=== PATIENT | male | born 1960 | race Caucasian/White ===

== ENCOUNTER 2016-12-16 21:45 | Emergency (ER) | payer MEDICAID ==
[2016-12-16 22:05] VITALS: BP 143/72; PULSE 96; RESP 20; TEMP 98.2; O2SAT 93
[2016-12-16 22:23] LABS: % IMMATURE GRANULYOCYTES 0.3 % (0.0-1.1); ABSOLUTE IMMATURE GRANULOCYTES 0.02 10^3/uL (0.00-0.10); ADD DIFF? NO; ADD MORPH? NO; ADD SCAN? NO; ATYPICAL LYMPHOCYTE FLAG 0 (0-99); FRAGMENT RBC FLAG 0 (0-99); HEMATOCRIT 46.6 % (40.0-51.0); HEMOGLOBIN 16.5 g/dL (13.7-17.5); LEFT SHIFT FLG 0 (0-99); LIPEMIA HEMOLYSIS FLAG 90 (0-99); MEAN CELL HEMOGLOBIN 33.7 pg (27.9-34.1); MEAN CELL HEMOGLOBIN CONCENTR. 35.4 g/dL (32.4-36.7); MEAN CELL VOLUME 95.1 fL (81.5-99.8); MEAN PLATELET VOLUME 10.8 fL (8.7-11.7); PLATELET CLUMPS FLAG 10 (0-99); PLATELET COUNT 62 10^3/uL (150-400); RED CELL DISTRIBUTION WIDTH 16.1 % (11.5-15.2)
[2016-12-16] MEDS ORDERED: TDAP ADULT 0.5 ML INJ (BOOSTRIX) IM ONE (22:28)
--- NOTE | 2016-12-16 22:30 | CPEKG ---
Heart Rate: 84 RR Interval: 714 P-R Interval: 204 QRSD Interval: 104 QT Interval: 400 QTC Interval: 473 P [place]: 56 QRS [place]: -14 T Wave [place]: 72 EKG Severity - NORMAL ECG - EKG Impression: SINUS RHYTHM Electronically Signed By: Debo Fish 16-Dec-2016 22:45:52
[2016-12-16 22:31] LABS: ANION GAP 16 mEq/L (8-16); CALCIUM 8.9 mg/dL (8.5-10.4); CARBON DIOXIDE 27 mEq/l (22-31); CHLORIDE 108 mEq/L (97-110); CREATININE 0.6 mg/dL (0.7-1.3); GLOMERULAR FILTRATION RATE > 60; GLUCOSE 215 mg/dL (70-100); POTASSIUM 3.4 mEq/L (3.5-5.2); SODIUM 151 mEq/L (134-144)
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
[2016-12-16 23:01] LABS: ETHANOL SERUM 381 mg/dL (0-10)
[2016-12-17] MEDS ORDERED: CHLORDIAZEPOXIDE 25MG PREPK#6 BTL TAKEHOME ONE (00:32)
== END 2016-12-17 01:20 | disposition home or self-care (01) ==
LOC: EDUNIT#
PROC: 0HQ1XZZ Repair Face Skin, External Approach (ICD-10-PCS; principal; 2016-12-16)
DX: S01.81XA Laceration without foreign body of other part of head, initial encounter (principal); F10.121 Alcohol abuse with intoxication delirium; F17.200 Nicotine dependence, unspecified, uncomplicated; E11.9 Type 2 diabetes mellitus without complications; Z23 Encounter for immunization; W19.XXXA Unspecified fall, initial encounter
CPT/HCPCS: G0480

== ENCOUNTER 2016-12-27 13:22 | Emergency (ER) | payer MEDICAID ==
[2016-12-27 13:38] LABS: % IMMATURE GRANULYOCYTES 0.4 % (0.0-1.1); ABSOLUTE IMMATURE GRANULOCYTES 0.03 10^3/uL (0.00-0.10); ADD DIFF? NO; ADD MORPH? NO; ADD SCAN? NO; ATYPICAL LYMPHOCYTE FLAG 20 (0-99); FRAGMENT RBC FLAG 0 (0-99); HEMATOCRIT 39.9 % (40.0-51.0); HEMOGLOBIN 13.8 g/dL (13.7-17.5); LEFT SHIFT FLG 10 (0-99); LIPEMIA HEMOLYSIS FLAG 90 (0-99); MEAN CELL HEMOGLOBIN 34.9 pg (27.9-34.1); MEAN CELL HEMOGLOBIN CONCENTR. 34.6 g/dL (32.4-36.7); MEAN PLATELET VOLUME 10.8 fL (8.7-11.7); PLATELET CLUMPS FLAG 30 (0-99); PLATELET COUNT 52 10^3/uL (150-400); RED BLOOD CELL COUNT 3.95 10^6/uL (4.40-6.38); RED CELL DISTRIBUTION WIDTH 17.6 % (11.5-15.2)
[2016-12-27 13:39] VITALS: RESP 16; TEMP 98.1
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
[2016-12-27 13:50] LABS: ANION GAP 16 mEq/L (8-16); CALCIUM 9.5 mg/dL (8.5-10.4); CARBON DIOXIDE 25 mEq/l (22-31); CHLORIDE 102 mEq/L (97-110); CREATININE 0.7 mg/dL (0.7-1.3); GLOMERULAR FILTRATION RATE > 60; GLUCOSE 282 mg/dL (70-100); SODIUM 143 mEq/L (134-144)
[2016-12-27] MEDS ORDERED: POTASSIUM CL 20 MEQ PKT PO ONE (16:43)
[2016-12-27 17:02] VITALS: BP 131/63; PULSE 105; O2SAT 93
== END 2016-12-27 17:01 | disposition home or self-care (01) ==
LOC: EDUNIT#
DX: S09.90XA Unspecified injury of head, initial encounter (principal); S16.1XXA Strain of muscle, fascia and tendon at neck level, initial encounter; R19.7 Diarrhea, unspecified; R73.9 Hyperglycemia, unspecified; F17.200 Nicotine dependence, unspecified, uncomplicated; Y09 Assault by unspecified means

== ENCOUNTER 2016-12-30 08:43 | Inpatient (IN) | payer MEDICAID ==
[2016-12-30] MEDS ORDERED: NS 1,000 ML IV ONE (09:34)
--- NOTE | 2016-12-30 09:43 | EDPHY ---
H & P Time Seen by Provider: 12/30/16 09:24 HPI/ROS: CHIEF COMPLAINT: Diarrhea HISTORY OF PRESENT ILLNESS: Patient is a 56-year-old homeless male who presents to the emergency department complaining of diarrhea for the past 8 days. Patient states that he has been drinking [place] water and this is caused him to have watery diarrhea. He has seen in the emergency department on 2016 twenty eight of two thousand seventeen for the same symptoms. His diarrhea is nonbloody. He denies fever or chills. No nausea or vomiting. He has mild abdominal cramping that is diffuse. REVIEW OF SYSTEMS: My complete review of systems is negative except as mentioned in the HPI. Past Medical/Surgical History: Includes brain aneurysm, lumbar spine fracture, traumatic brain injury, skin grafting on left flank, hepatitis-C, end-stage liver disease, cirrhosis Social history: The patient smokes. He denies alcohol use today. Smoking Status: Current every day smoker Physical Exam: Vitals noted. Tachycardic 115. 171/75. 37.5. 91% GENERAL: No acute distress, alert. HEENT: Eyes normal to inspection, normal pharynx, no signs of dehydration. NECK: No thyromegaly, no lymphadenopathy, supple. RESPIRATORY: Clear to auscultation bilaterally, no rales, rhonchi or wheezing. CVS: Regular rate and rhythm, no rubs, murmurs, or gallops. ABDOMEN: Soft, nontender, nondistended, no organomegaly. BACK: Normal to inspection, no CVA tenderness. Skin graft on left lower back Groin: No rash SKIN: Normal color, no rash, warm, dry. No pallor. EXTREMITIES: No pedal edema, no calf tenderness, no Homans sign or cords, no joint swelling. NEURO/PSYCH: Alert and oriented x3, normal mood and affect, normal motor sensory exam. No obvious cranial nerve deficit. Constitutional: Initial Vital Signs Temperature (C) 37.5 C 12/30/16 08:58 Heart Rate 115 H 12/30/16 08:58 Respiratory Rate 16 12/30/16 08:58 Blood Pressure 171/75 H 12/30/16 08:58 O2 Sat (%) 91 L 12/30/16 08:58 O2 Delivery Mode Room Air Allergies/Adverse Reactions: No Known Allergies Allergy (Verified 12/16/16 21:59) Home Medications: Medication Instructions Recorded Ibuprofen [Motrin (*)] 200 mg PO Q4-6PRN PRN 04/22/16 Acetaminophen [Tylenol 325mg (*)] 650 mg PO Q4HRS PRN #0 tab 04/30/16 Amoxicillin 500 mg PO TID 10 Days 04/30/16 oxyCODONE IR [Oxycodone Ir (*)] 5 - 10 mg PO Q3H PRN #0 tab 04/30/16 Medical Decision Making ED Course/Re-evaluation: In the emergency department I discussed possible etiologies with the patient. I reviewed previous record. Patient had an IV placed. He is given L of normal saline for hydration. Laboratory studies including stool studies were ordered. I reviewed the patient's laboratory studies. His LFTs are elevated. His potassium is low at 3.0. The patient was given potassium chloride 40 mEq orally. Patient's stool was positive for C diff, salmonella and E coli (EPEC) I discussed the results with the patient. Answered all his questions. I paged the hospitalist service for admission. I discussed case with Dr. Lu. He recommended oral vancomycin. Vancomycin 250 mg orally was given. Differential Diagnosis: My differential includes but is not limited to diarrhea, infectious diarrhea, ova infection, parasite infection, obstruction, perforation, colitis, dehydration - Data Points Laboratory Results: Laboratory Results 12/30/16 08:45 12/30/16 08:45 12/30/16 12/30/16 12/30/16 09:30 08:45 08:45 WBC 4.94 10^3/uL 10^3/uL (3.80-9.50) RBC 3.75 10^6/uL L 10^6/uL (4.40-6.38) Hgb 13.3 g/dL L g/dL (13.7-17.5) Hct 37.8 % L % (40.0-51.0) MCV 100.8 fL H fL (81.5-99.8) MCH 35.5 pg H pg (27.9-34.1) MCHC 35.2 g/dL g/dL (32.4-36.7) RDW 17.3 % H % (11.5-15.2) Plt Count 37 10^3/uL L 10^3/uL (150-400) MPV 10.7 fL fL (8.7-11.7) Neut % (Auto) 73.7 % % (39.3-74.2) Lymph % (Auto) 13.6 % L % (15.0-45.0) [place] % (Auto) 11.1 % % (4.5-13.0) Eos % (Auto) 0.6 % % (0.6-7.6) Baso % (Auto) 0.6 % % (0.3-1.7) Nucleat RBC Rel Count 0.0 % % (0.0-0.2) Absolute Neuts (auto) 3.64 10^3/uL 10^3/uL (1.70-6.50) Absolute Lymphs (auto) 0.67 10^3/uL L 10^3/uL (1.00-3.00) Absolute Monos (auto) 0.55 10^3/uL 10^3/uL (0.30-0.80) Absolute Eos (auto) 0.03 10^3/uL 10^3/uL (0.03-0.40) Absolute Basos (auto) 0.03 10^3/uL 10^3/uL (0.02-0.10) Absolute Nucleated RBC 0.00 10^3/uL 10^3/uL (0-0.01) Immature Gran % 0.4 % % (0.0-1.1) Immature Gran # 0.02 10^3/uL 10^3/uL (0.00-0.10) Platelet Estimate DECREASED L (ADEQ) Sodium 133 mEq/L L mEq/L (134-144) Potassium 3.0 mEq/L L mEq/L (3.5-5.2) Chloride 98 mEq/L mEq/L (97-110) Carbon Dioxide 24 mEq/l mEq/l (22-31) Anion Gap 11 mEq/L mEq/L (8-16) BUN 6 mg/dL L mg/dL (7-23) Creatinine 0.5 mg/dL L mg/dL (0.7-1.3) Estimated GFR > 60 Glucose 291 mg/dL H mg/dL (70-100) Calcium 8.2 mg/dL L mg/dL (8.5-10.4) Total Bilirubin 4.3 mg/dL H mg/dL (0.1-1.4) Conjugated Bilirubin 1.9 mg/dL H mg/dL (0.0-0.5) Unconjugated Bilirubin 2.4 mg/dL H mg/dL (0.0-1.1) AST 103 IU/L H IU/L (17-59) ALT 65 IU/L IU/L (21-72) Alkaline Phosphatase 120 IU/L IU/L (38-126) Total Protein 6.5 g/dL g/dL (6.3-8.2) Albumin 3.3 g/dL L g/dL (3.5-5.0) Lipase 245.0 IU/L IU/L (23-300) Stool Concentration REJ Stool Ova & Parasites REJ Parasite Trichrome REJ Direct Microscop Exam REJ Microbiology Results: MICROBIOLOGY 12/30/16 09:30 Stool Gastrointestinal Tract Panel (PCR) - Final Clostridium Difficile Detected Salmonella Species E.coli Enteropathogenic(Epec) Medications Given: Discontinued Medications Sodium Chloride (Ns) 1,000 mls @ 0 mls/hr IV ONCE ONE PRN Reason: Wide Open Stop: 12/30/16 09:35 Last Admin: 12/30/16 09:51 Dose: 1,000 mls Potassium Chloride (Klor-Con) 40 meq PO ONCE ONE Stop: 12/30/16 11:18 Last Admin: 12/30/16 11:30 Dose: 40 meq Departure - Departure Disposition: Home, Routine, Self-Care Clinical Impression: Hypokalemia, Clostridium difficile diarrhea Diarrhea Qualifiers: Diarrhea type: unspecified type Qualified Code(s): R19.7 - Diarrhea, unspecified Hepatitis C Qualifiers: Viral hepatitis chronicity: chronic Condition: Good Referrals: NANCY TROTTER [Other] - As per Instructions
[2016-12-30 10:09] LABS: ALANINE AMINOTRANSFERASE 65 IU/L (21-72); ALBUMIN 3.3 g/dL (3.5-5.0); ALKALINE PHOSPHATASE 120 IU/L (38-126); ANION GAP 11 mEq/L (8-16); ASPARTATE AMINOTRANSFERASE 103 IU/L (17-59); BILIRUBIN,TOTAL 4.3 mg/dL (0.1-1.4); BILIRUBIN-CONJUGATED 1.9 mg/dL (0.0-0.5); BILIRUBIN-UNCONJUGATED 2.4 mg/dL (0.0-1.1); CALCIUM 8.2 mg/dL (8.5-10.4); CARBON DIOXIDE 24 mEq/l (22-31); CHLORIDE 98 mEq/L (97-110); CREATININE 0.5 mg/dL (0.7-1.3); GLOMERULAR FILTRATION RATE > 60; GLUCOSE 291 mg/dL (70-100); SODIUM 133 mEq/L (134-144); TOTAL PROTEIN 6.5 g/dL (6.3-8.2)
[2016-12-30 10:33] LABS: % IMMATURE GRANULYOCYTES 0.4 % (0.0-1.1); ABSOLUTE IMMATURE GRANULOCYTES 0.02 10^3/uL (0.00-0.10); ADD DIFF? NO; ADD MORPH? NO; ADD SCAN? NO; ATYPICAL LYMPHOCYTE FLAG 20 (0-99); FRAGMENT RBC FLAG 0 (0-99); HEMATOCRIT 37.8 % (40.0-51.0); HEMOGLOBIN 13.3 g/dL (13.7-17.5); LEFT SHIFT FLG 80 (0-99); LIPEMIA HEMOLYSIS FLAG 90 (0-99); MEAN CELL HEMOGLOBIN 35.5 pg (27.9-34.1); MEAN CELL HEMOGLOBIN CONCENTR. 35.2 g/dL (32.4-36.7); MEAN CELL VOLUME 100.8 fL (81.5-99.8); MEAN PLATELET VOLUME 10.7 fL (8.7-11.7); PLATELET CLUMPS FLAG 0 (0-99); RED BLOOD CELL COUNT 3.75 10^6/uL (4.40-6.38); RED CELL DISTRIBUTION WIDTH 17.3 % (11.5-15.2)
[2016-12-30 10:38] LABS: PLATELET COUNT 37 10^3/uL (150-400)
[2016-12-30 11:16] LABS: PLATELET ESTIMATE DECREASED (ADEQ)
[2016-12-30] MEDS ORDERED: POTASSIUM CL 20 MEQ TAB PO ONE (11:17)
[2016-12-30] MEDS ORDERED: VANCOMYCIN 125 MG/2.5 ML UDL PO ONE (12:18)
[2016-12-30 13:14] LABS: O/P DESCRIPTION MUCOID BROWN STOOL; O/P DIRECT NONE SEEN (NONE SEEN)
[2016-12-30] MEDS ORDERED: MAGNESIUM SULF 2 GM/WATER 50 ML IV ONE ×2 (13:34→16:00)
[2016-12-30] MEDS ORDERED: PROTOCOL MAGNESIUM 1 DOSE IV PRN (13:38)
[2016-12-30] MEDS ORDERED: MAGNESIUM SULF 2 GM/WATER 50 ML BAG IV ONE (13:38)
[2016-12-30] MEDS ORDERED: PROTOCOL POTASSIUM 1 DOSE MISC PRN (13:38)
[2016-12-30] MEDS ORDERED: POTASSIUM CL 20 MEQ/15 ML UDCUP PO ONE ×2 (13:45→16:00)
[2016-12-30] MEDS ORDERED: NS 1,000 ML IV SCH (13:45)
[2016-12-30] MEDS ORDERED: D50W 25 GM/50 ML SYR IVP PRN (13:46)
[2016-12-30] MEDS ORDERED: ONDANSETRON 4 MG/2 ML VIAL IVP PRN (13:47)
[2016-12-30] MEDS ORDERED: ONDANSETRON DISINTEGRATING 4 MG TAB PO PRN (13:47)
--- NOTE | 2016-12-30 13:57 | PDGENHP ---
History and Physical - Chief Complaint diarrhea - History of Present Illness This is a 56 yo homeless male who is being admitted for C-Diff Colitis. He has a hx of intermittent homelessness and recently became homeless again. He drank water from a stream several days ago and since has been having diarrhea and abd pain. He was tested for C-diff in the ED and this was positive and he has been started on oral Vancomycin. Due to the generalized malaise, oral intake has been poor. He has a number of complicated Medical problems to included ESLD, and thrombocytopenia. He has a hx of ETOH abuse but reports not drinking for about a week. He does not have acute WD sx's. In the ED he was noted to have a hypokalemia and it was replaced. I ordered a Mg and this is noted to be low. He denies Fevers, CP, SOB, palpitations, or other. He does have leg swelling which he reports in intermittent PMHx: ESLD, hyperbilirubinemia, cirrhosis, tobacco abuse, thrombocytopenia, alcoholism, TBI, SAH, Right elbow bursitis and cellulitis PSHx: TIPS, right elbow I&D Soc Hx: +tobacco, +ETOH, Neg ILL FmHx: father with CAD History Information - Allergies/Home Medication List Allergies/Adverse Reactions: No Known Allergies Allergy (Verified 12/16/16 21:59) Home Medications: Unobtainable 12/30/16 [Last Taken Unknown] I have personally reviewed and updated: family history, medical history, social history, surgical history - Past Medical History liver disease Additional medical history: hep C. SAH 01/15. thrombocytopenia - Surgical History Additional surgical history: TIPS - Family History Positive for: non-pertinent - Social History Smoking Status: Current every day smoker Review of Systems ROS: 10pt was reviewed & negative except for what was stated in HPI & below Physical Exam Temp Pulse Resp BP Pulse Ox 36.7 C 85 18 141/64 H 94 12/30/16 11:37 12/30/16 13:24 12/30/16 13:24 12/30/16 13:24 12/30/16 13:45 O2 (L/minute) 2 Constitutional: no apparent distress, chronically ill appearing, unkempt Eyes: PERRL, other (jaundiced) Ears, Nose, Mouth, Throat: hearing normal, no oral mucosal ulcers, dry mucous membranes Cardiovascular: regular rate and rhythym, edema (2+ bilateral), No JVD Respiratory: no respiratory distress, clear to auscultation Gastrointestinal: normoactive bowel sounds, distension, No guarding, No rebound Skin: warm, normal color Musculoskeletal: No generalized weakness Neurologic: AAOx3 Psychiatric: interacting appropriately, not anxious, not encephalopathic Lymph, Heme, Immunologic: no cervical LAD, no supraclavicular LAD Lab Data & Imaging Review 12/30/16 08:45 12/30/16 08:45 WBC 4.94 10^3/uL (3.80-9.50) 12/30/16 08:45 RBC 3.75 10^6/uL (4.40-6.38) L 12/30/16 08:45 Hgb 13.3 g/dL (13.7-17.5) L 12/30/16 08:45 Hct 37.8 % (40.0-51.0) L 12/30/16 08:45 MCV 100.8 fL (81.5-99.8) H 12/30/16 08:45 MCH 35.5 pg (27.9-34.1) H 12/30/16 08:45 MCHC 35.2 g/dL (32.4-36.7) 12/30/16 08:45 RDW 17.3 % (11.5-15.2) H 12/30/16 08:45 Plt Count 37 10^3/uL (150-400) L 12/30/16 08:45 MPV 10.7 fL (8.7-11.7) 12/30/16 08:45 Neut % (Auto) 73.7 % (39.3-74.2) 12/30/16 08:45 Lymph % (Auto) 13.6 % (15.0-45.0) L 12/30/16 08:45 [place] % (Auto) 11.1 % (4.5-13.0) 12/30/16 08:45 Eos % (Auto) 0.6 % (0.6-7.6) 12/30/16 08:45 Baso % (Auto) 0.6 % (0.3-1.7) 12/30/16 08:45 Nucleat RBC Rel Count 0.0 % (0.0-0.2) 12/30/16 08:45 Absolute Neuts (auto) 3.64 10^3/uL (1.70-6.50) 12/30/16 08:45 Absolute Lymphs (auto) 0.67 10^3/uL (1.00-3.00) L 12/30/16 08:45 Absolute Monos (auto) 0.55 10^3/uL (0.30-0.80) 12/30/16 08:45 Absolute Eos (auto) 0.03 10^3/uL (0.03-0.40) 12/30/16 08:45 Absolute Basos (auto) 0.03 10^3/uL (0.02-0.10) 12/30/16 08:45 Absolute Nucleated RBC 0.00 10^3/uL (0-0.01) 12/30/16 08:45 Immature Gran % 0.4 % (0.0-1.1) 12/30/16 08:45 Immature Gran # 0.02 10^3/uL (0.00-0.10) 12/30/16 08:45 Platelet Estimate DECREASED (ADEQ) L 12/30/16 08:45 Sodium 133 mEq/L (134-144) L 12/30/16 08:45 Potassium 3.0 mEq/L (3.5-5.2) L 12/30/16 08:45 Chloride 98 mEq/L (97-110) 12/30/16 08:45 Carbon Dioxide 24 mEq/l (22-31) 12/30/16 08:45 Anion Gap 11 mEq/L (8-16) 12/30/16 08:45 BUN 6 mg/dL (7-23) L 12/30/16 08:45 Creatinine 0.5 mg/dL (0.7-1.3) L 12/30/16 08:45 Estimated GFR > 60 12/30/16 08:45 Glucose 291 mg/dL (70-100) H 12/30/16 08:45 Calcium 8.2 mg/dL (8.5-10.4) L 12/30/16 08:45 Magnesium 1.1 mg/dL (1.6-2.3) L 12/30/16 08:45 Total Bilirubin 4.3 mg/dL (0.1-1.4) H 12/30/16 08:45 Conjugated Bilirubin 1.9 mg/dL (0.0-0.5) H 12/30/16 08:45 Unconjugated Bilirubin 2.4 mg/dL (0.0-1.1) H 12/30/16 08:45 AST 103 IU/L (17-59) H 12/30/16 08:45 ALT 65 IU/L (21-72) 12/30/16 08:45 Alkaline Phosphatase 120 IU/L (38-126) 12/30/16 08:45 Total Protein 6.5 g/dL (6.3-8.2) 12/30/16 08:45 Albumin 3.3 g/dL (3.5-5.0) L 12/30/16 08:45 Lipase 245.0 IU/L (23-300) 12/30/16 08:45 Stool Concentration REJ 12/30/16 09:30 Stool Ova & Parasites MUCOID BROWN STOOL 12/30/16 12:30 Parasite Trichrome REJ 12/30/16 09:30 Direct Microscop Exam NONE SEEN (NONE SEEN) 12/30/16 12:30 Assessment & Plan Assessment: # Acute Clostridium difficile colitis with diarrhea: -cont Vancomycin #Dehydration #Hypokalemia and Hypomagnesemia #ESLD, Cirrhosis, with hx of Hep C and Alcoholism #Hyperglycemia #Jaundice and Hyperbilirubinemia, due to ESLD #Thrombocytopenia due to ESLD #Pedal Edema, etiology is likely multifactoria. Plan: Admit Telemetry Replace K and Mg Gentle IVF. He has already received one liter in the E.D. will provide for additional liter at a gentle rate His Edema may be acute. Will check TTE. Liver disease/low protein state likely contributing Continue vancomycin Await stool cultures Monitor for WD. None currently Will need inpatient admission
[2016-12-30] MEDS: VANCOMYCIN 125 MG/2.5 ML UDL PO SCH ×2 (15:49→20:11)
--- NOTE | 2016-12-30 15:56 | WOCRNPDOC ---
WOCRN Advanced Assessment Note - Skin Integrity Problem, Advanced Assess Generalized Groin Dressing Type: Open to Air Exudate Amount: None Exudate Characteristic(s): None Integumentary Issue Intervention: Barrier Cream Applied (Touchless zinc spray) Magui Wound Tissue: Raw, Denuded Magui Wound Swelling: Mild Wound Bed Color: Red Skin Integrity Problem Comment: Raw, denuded skin noted in patient's groin, extending posteriorly to his perianal region r/t diarrhea x 8 days. Cleansed site w/ dimethicone barrier wipe, then applied Touchless Zinc oxide spray to groin and buttocks. Wound care will follow up on Thursday 01/04 to assess efficacy of treatment. logging equipment operator Anna present and assisting.
--- NOTE | 2016-12-30 17:18 | ECHO ---
[id number] + + [address] : : [place] [address] : : [phone] + + Adult Echocardiographic Report + -+ :Name: KENDAL PHILLIP Jason Date: 12/30/2016 02:24 PM : : Hospital Admission Number: [id number] : :: 1960 Gender: Male Height: 67 in : :Age: 56 yrs Race: WH Weight: 175 lb : :Reason For Study: Eval LV Fx : : BSA: 1.9 meters 2: :History: C-Diff : + -+ MMode/2D Measurements \T\ Calculations IVSd: 0.90 cm LVIDd: 4.7 cm FS: 38.3 % Ao root diam: 2.8 cm LVPWd: 1.0 cm LVIDs: 2.9 cm EDV(Teich): 102.5 ml ACS: 1.3 cm ESV(Teich): 32.3 ml EF(Teich): 68.5 % Normal Measurement Values: + + :LVIDd (3.5-5.7cm) IVSd (0.6-1.1cm) LVPWd (0.6-1.1cm) Aortic Root (2.0-3.7cm)Left Atrium (1.5-4.0cm): :LV Vol(d) (76-115ml) LV Vol(s) (29-48ml) Ejec Fraction (50-65%)PV Segun (0.6- 1.2m/s) TV Segun (0.4-1.0m/s) : :MV E Segun (0.8-1.0m/s)MV A Seugn (0.3-1.0m/s)LVOT Segun (0.7-1.2m/s) Asc Ao Segun ( 0.9-1.8m/s) : + + Doppler Measurements \T\ Calculations MV E max segun: 97.2 cm/sec PA V2 max: 153.4 cm/sec TR max segun: 272.8 cm/sec MV A max segun: 81.4 cm/sec PA max P.4 mmHg TR max P.8 mmHg MV E/A: 1.2 RAP systole: 5.0 mmHg RVSP(TR): 34.8 mmHg Left Ventricle The left ventricle is normal in size. There is normal left ventricular wall thickness. The left ventricular ejection fraction is normal. Ejection Fraction = 68%. The left ventricular wall motion is normal. Right Ventricle The right ventricle is normal in size and function. Atria The left atrial size is normal. Right atrial size is normal. Mitral Valve The mitral valve is normal in structure and function. There is no evidence of mitral valve prolapse. There is no mitral valve stenosis. There is no mitral regurgitation noted. Tricuspid Valve Normal tricuspid valve. There is trace tricuspid regurgitation. Right ventricular systolic pressure is normal. Aortic Valve The aortic valve is normal in structure and function. There is no aortic stenosis. There is no aortic insufficiency. Pulmonic Valve The pulmonic valve is normal in structure and function. There is no pulmonic valvular regurgitation. Great Vessels The aortic root is normal size. Pericardium/Pleural There is no pericardial effusion. Conclusion A complete two-dimensional transthoracic echocardiogram was performed (2D, M-mode, Doppler and color flow Doppler). This was essentially a normal study. The left ventricular ejection fraction is normal. Ejection Fraction = 68%. The left ventricular wall motion is normal. The right ventricle is normal in size and function. The mitral valve is normal in structure and function. There is trace tricuspid regurgitation. Right ventricular systolic pressure is normal. The aortic valve is normal in structure and function. The pulmonic valve is normal in structure and function. There is no pericardial effusion. This was essentially a normal study. Final Reading Physician: Kalee Murrieta signed on 12/30/2016 05:16 PM Ordering Physician: Jaskaran Ortiz Performed By: Ulices Ventura, JUANCS
[2016-12-30] MEDS: INSULIN LISPRO 100 UNIT/ML SC SCH (18:06)
[2016-12-30 19:35] LABS: O/P CONCENTRATION NONE SEEN (NONE SEEN)
[2016-12-30 21:50] LABS: ANION GAP 4 mEq/L (8-16); CALCIUM 7.8 mg/dL (8.5-10.4); CARBON DIOXIDE 25 mEq/l (22-31); CHLORIDE 101 mEq/L (97-110); CREATININE 0.5 mg/dL (0.7-1.3); GLOMERULAR FILTRATION RATE > 60; GLUCOSE 163 mg/dL (70-100); MAGNESIUM 1.7 mg/dL (1.6-2.3); POTASSIUM 3.3 mEq/L (3.5-5.2); SODIUM 130 mEq/L (134-144)
[2016-12-30] MEDS ORDERED: POTASSIUM CL 10 MEQ TAB PO ONE (23:01)
[2016-12-31 04:04] LABS: COLOR YELLOW; LEUKOCYTE ESTERASE,URINE NEGATIVE (NEGATIVE); NITRITE,URINE NEGATIVE (NEGATIVE)
[2016-12-31 05:20] LABS: INR 1.49 (0.83-1.16)
[2016-12-31] MEDS: VANCOMYCIN 125 MG/2.5 ML UDL PO SCH (05:25)
[2016-12-31 05:35] LABS: % IMMATURE GRANULYOCYTES 0.6 % (0.0-1.1); ABSOLUTE IMMATURE GRANULOCYTES 0.03 10^3/uL (0.00-0.10); ADD DIFF? NO; ADD MORPH? NO; ADD SCAN? NO; ATYPICAL LYMPHOCYTE FLAG 40 (0-99); FRAGMENT RBC FLAG 0 (0-99); HEMATOCRIT 34.7 % (40.0-51.0); HEMOGLOBIN 12.1 g/dL (13.7-17.5); LEFT SHIFT FLG 70 (0-99); LIPEMIA HEMOLYSIS FLAG 90 (0-99); MEAN CELL HEMOGLOBIN 35.7 pg (27.9-34.1); MEAN CELL HEMOGLOBIN CONCENTR. 34.9 g/dL (32.4-36.7); MEAN CELL VOLUME 102.4 fL (81.5-99.8); MEAN PLATELET VOLUME 11.9 fL (8.7-11.7); PLATELET CLUMPS FLAG 0 (0-99); RED BLOOD CELL COUNT 3.39 10^6/uL (4.40-6.38); RED CELL DISTRIBUTION WIDTH 17.8 % (11.5-15.2)
[2016-12-31 05:52] LABS: PLATELET COUNT 32 10^3/uL (150-400)
[2016-12-31 06:39] LABS: PLATELET ESTIMATE DECREASED (ADEQ)
[2016-12-31 07:09] LABS: ALANINE AMINOTRANSFERASE 57 IU/L (21-72); ALBUMIN 2.6 g/dL (3.5-5.0); ALKALINE PHOSPHATASE 104 IU/L (38-126); ANION GAP 8 mEq/L (8-16); ASPARTATE AMINOTRANSFERASE 111 IU/L (17-59); BILIRUBIN,TOTAL 4.4 mg/dL (0.1-1.4); CALCIUM 7.7 mg/dL (8.5-10.4); CARBON DIOXIDE 24 mEq/l (22-31); CHLORIDE 102 mEq/L (97-110); CREATININE 0.5 mg/dL (0.7-1.3); GLOMERULAR FILTRATION RATE > 60; GLUCOSE 203 mg/dL (70-100); MAGNESIUM 1.7 mg/dL (1.6-2.3); POTASSIUM 3.1 mEq/L (3.5-5.2); SODIUM 134 mEq/L (134-144); TOTAL PROTEIN 5.7 g/dL (6.3-8.2)
[2016-12-31 07:15] LABS: BILIRUBIN-CONJUGATED 1.8 mg/dL (0.0-0.5); BILIRUBIN-UNCONJUGATED 2.6 mg/dL (0.0-1.1)
[2016-12-31] MEDS ORDERED: POTASSIUM CL 10 MEQ TAB PO ONE ×2 (07:43→20:43)
[2016-12-31] MEDS ORDERED: MAGNESIUM SULF 1 GM/DEXTROSE 100 ML IV ONE (07:45)
[2016-12-31] MEDS: INSULIN LISPRO 100 UNIT/ML SC SCH ×3 (09:15→17:11)
--- NOTE | 2016-12-31 09:39 | HOSPPROG ---
Hospitalist Progress Note Assessment/Plan: Assessment: # Diarrhea with GI pathogen panel identifying Cdiff/Salmonella/EColi (EIPEC) He has not been on antibiotics recently. I suspect the diarrhea is due to acute bacterial infection. Will treat given the severity of his symptoms -DC PO Vanco -start cipro 500mg bid for 3-5 days #Dehydration (improving) #Hypokalemia and Hypomagnesemia -cont to replace #ESLD, Cirrhosis, with hx of Hep C and Alcoholism #Hyperglycemia #Jaundice and Hyperbilirubinemia, due to ESLD #Thrombocytopenia due to ESLD #Pedal Edema, etiology is likely multifactorial -echo reviewed Plan Cont: dc monitoring specialist for signs of withdrawal dc once strength improves Subjective: feels weak. continues to have nonbloody diarrhea Objective: Vital Signs Temp Pulse Resp BP Pulse Ox 37.0 C 86 26 H 125/64 H 92 12/31/16 07:31 12/31/16 07:31 12/31/16 07:31 12/31/16 07:31 12/31/16 07:31 Laboratory Results 12/31/16 04:33 12/31/16 06:00 12/30/16 12/31/16 01/01/17 05:59 05:59 05:59 Intake Total 1975 Output Total 400 Balance 1575 PT 18.0 SEC (12.0-15.0) H 12/31/16 04:33 INR 1.49 (0.83-1.16) H 12/31/16 04:33 - Physical Exam Constitutional: no apparent distress, appears nourished, not in pain Cardiovascular: regular rate and rhythym, no murmur, rub, or gallop Respiratory: no respiratory distress, no rales or rhonchi, clear to auscultation Gastrointestinal: normoactive bowel sounds, soft, non-tender abdomen, no palpable masses, No guarding, No rebound, No distension ICD10 Worksheet Patient Problems: Problems Problem Status Onset C. difficile diarrhea Acute ~12/30/16 Alcoholic intoxication Acute Subarachnoid hemorrhage following injury Acute Thrombocytopenia Acute Closed L1 vertebral fracture Acute Alcohol abuse Acute Fall at home Acute Cirrhosis of liver Acute Liver failure Acute Hepatitis C Acute Hypophosphatemia Acute Cellulitis Acute Head injury Acute Cervical strain Acute Diarrhea Acute Hyperglycemia Acute Hypokalemia Acute Clostridium difficile diarrhea Acute
[2016-12-31 10:12] LABS: HEMOGLOBIN A1C 6.3 % (4.0-6.0)
[2016-12-31] MEDS: CIPROFLOXACIN 500 MG TAB PO SCH ×2 (10:32→20:06)
[2016-12-31] MEDS: ACETAMINOPHEN 325 MG TAB PO PRN (15:28)
[2016-12-31] MEDS: oxyCODONE IR 5 MG TAB PO PRN (15:28)
[2016-12-31 16:25] LABS: O/P TRICHROME NONE SEEN (NONE SEEN)
[2016-12-31 18:17] LABS: POTASSIUM 3.6 mEq/L (3.5-5.2)
[2016-12-31] MEDS ORDERED: POTASSIUM CL 20 MEQ TAB PO ONE (21:00)
[2017-01-01] MEDS: oxyCODONE IR 5 MG TAB PO PRN ×2 (00:49→19:37)
[2017-01-01] MEDS: ACETAMINOPHEN 325 MG TAB PO PRN (00:49)
[2017-01-01 05:37] LABS: MAGNESIUM 1.6 mg/dL (1.6-2.3); POTASSIUM 3.8 mEq/L (3.5-5.2)
[2017-01-01] MEDS ORDERED: POTASSIUM CL 10 MEQ TAB PO ONE ×2 (08:42→12:45)
[2017-01-01] MEDS: INSULIN LISPRO 100 UNIT/ML SC SCH ×3 (09:03→17:57)
[2017-01-01] MEDS: CIPROFLOXACIN 500 MG TAB PO SCH ×2 (09:04→19:29)
[2017-01-01] MEDS ORDERED: IOPAMIDOL (ISOVUE-300) 100 ML BTL ONE (11:09)
--- NOTE | 2017-01-01 15:17 | HOSPPROG ---
Hospitalist Progress Note Assessment/Plan: Assessment: # Diarrhea with GI pathogen panel identifying Cdiff/Salmonella/EColi (EIPEC) He has not been on antibiotics recently. I suspect the diarrhea is due to acute bacterial infection. Will treat given the severity of his symptoms. Reports persistent abdominal pain and discolored skin on lower abdomen -continue cipro 500mg bid for 3-5 days -will monitor off treatment for c-diff -ct abd pelvis to eval for cause of pain and skin changes #Dehydration (improving) #Hypokalemia and Hypomagnesemia -cont to replace #ESLD, Cirrhosis, with hx of Hep C and Alcoholism #Hyperglycemia #Jaundice and Hyperbilirubinemia, due to ESLD #Thrombocytopenia due to ESLD #Pedal Edema, etiology is likely multifactorial -echo reviewed Subjective: continues to have diarrhea and abdominal pain. The diarrhea is reportedly bloody. overall feels better today, but still very weak Objective: Vital Signs Temp Pulse Resp BP Pulse Ox 36.7 C 83 12 140/90 H 91 L 01/01/17 09:01 01/01/17 09:01 01/01/17 09:01 01/01/17 09:01 01/01/17 09:01 Laboratory Results 12/31/16 04:33 01/01/17 05:12 12/31/16 01/01/17 01/02/17 05:59 05:59 05:59 Intake Total 975 1670 Output Total 400 600 Balance 575 1070 PT 18.0 SEC (12.0-15.0) H 12/31/16 04:33 INR 1.49 (0.83-1.16) H 12/31/16 04:33 - Physical Exam Cardiovascular: regular rate and rhythym, no murmur, rub, or gallop Respiratory: no respiratory distress, no rales or rhonchi, clear to auscultation Gastrointestinal: tenderness, distension, No guarding, No rebound Genitourinary: no bladder fullness, no bladder tenderness, no renal bruits Skin: no rashes or abrasions, no fluctuance, no induration, other (discolored dark skin lower abd) ICD10 Worksheet Patient Problems: Problems Problem Status Onset C. difficile diarrhea Acute ~12/30/16 Alcoholic intoxication Acute Subarachnoid hemorrhage following injury Acute Thrombocytopenia Acute Closed L1 vertebral fracture Acute Alcohol abuse Acute Fall at home Acute Cirrhosis of liver Acute Liver failure Acute Hepatitis C Acute Hypophosphatemia Acute Cellulitis Acute Head injury Acute Cervical strain Acute Diarrhea Acute Hyperglycemia Acute Hypokalemia Acute Clostridium difficile diarrhea Acute
[2017-01-02 01:26] VITALS: RESP 12
[2017-01-02 05:40] LABS: MAGNESIUM 1.4 mg/dL (1.6-2.3); POTASSIUM 3.4 mEq/L (3.5-5.2)
[2017-01-02] MEDS ORDERED: POTASSIUM CL 10 MEQ TAB PO ONE (08:01)
[2017-01-02 08:12] VITALS: BP 139/77; PULSE 77; TEMP 98.3; O2SAT 92
[2017-01-02] MEDS: CIPROFLOXACIN 500 MG TAB PO SCH (09:31)
[2017-01-02] MEDS: INSULIN LISPRO 100 UNIT/ML SC SCH ×2 (09:32→12:34)
--- NOTE | 2017-01-02 16:19 | GDS ---
[f rep st] DISCHARGE SUMMARY DISCHARGE DIAGNOSES: 1. Acute bacterial gastroenteritis. 2. Resolved dehydration. 3. Improved hypokalemia and hypomagnesemia. 4. End-stage liver disease and cirrhosis. History of hepatitis C and alcohol abuse. 5. Hyperglycemia. 6. Thrombocytopenia. 7. Multifactorial lower extremity swelling. HOSPITAL COURSE AND STAY BY PROBLEM: 1. Gastroenteritis: The patient presented to the hospital with diarrhea. A GI pathogen panel was sent which identified Clostridium difficile, Salmonella, and E coli Enteropathogenic EPEC. Initiall y the patient was started on oral vancomycin, and his symptoms were not improving. On hospital day #1, when I saw him, I switched him to Cipro to cover the salmonella and E coli. It is possible that the Clostridium difficile is simply a colonizer. On day of discharge, the patient's diarrhea is im proving. He is tolerating a regular diet. The plan will be for him to complete a 3-day course of o ral ciprofloxacin. If his diarrhea continues for more than 72 hours after discharge after stopping the Cipro, I think it would be reasonable for him to be treated for Clostridium difficile. I did gi ve him a prescription for Flagyl 500 mg p.o. three times daily to be taken for 10 in 10 days if his diarrhea is not improving. I instructed him on the importance of avoiding alcohol while taking the Flagyl to avoid and Antabuse like reaction. PHYSICAL EXAM: VITAL SIGNS: On day of discharge, blood pressure 139/77, pulse 77, respiratory rate 12, O2 saturation 92% on room air. Temperature afebrile. GENERAL: No acute distress. HEART: S1 , S2. LUNGS: Clear. ABDOMEN: Soft, mildly distended. There is no guarding or rebound tenderness . PERTINENT LABS AND STUDIES DONE THIS HOSPITAL STAY: CT of the abdomen done 01/01/2017. Refer to re port. Echocardiogram done in the setting of lower extremity swelling, ejection fraction is 68%. No signif icant valvular disease. DISCHARGE MEDICATIONS: Please refer to discharge medication reconciliation in [facility] for full det ails. Below is a preliminary list. New medications on hospital discharge. 1. Ciprofloxacin 500 mg p.o. twice daily, prescription for 1 tablet was given since this will compl ete 3 days of treatment. 2. A prescription for Flagyl 500 mg p.o. three times daily for 10 days was given to be taken if his diarrhea does not improve within 72 hours after stopping his Cipro. DISCHARGE INSTRUCTIONS: The patient will be discharged from the hospital where he has been schedule d a followup appointment at the [facility]. He should be considered for outpatient treatment o f his hepatitis C as indicated. He was instructed to avoid alcohol use. Copy requested to: [facility] /[id number]/[id number]
== END 2017-01-02 13:14 | disposition home or self-care (01) | DRG 373 ==
LOC: EDUNIT# → OBSVTOIN 13:47 → F3E 14:04
PROVIDERS: ADMIT Internal Medicine Pulmonary Disease; ATTEND Family Medicine
DX: A04.7 Enterocolitis due to Clostridium difficile (principal); A02.0 Salmonella enteritis; A04.0 Enteropathogenic Escherichia coli infection; E86.0 Dehydration; E87.6 Hypokalemia; E83.42 Hypomagnesemia; K72.90 Hepatic failure, unspecified without coma; R73.9 Hyperglycemia, unspecified; D69.6 Thrombocytopenia, unspecified; K70.30 Alcoholic cirrhosis of liver without ascites; F10.20 Alcohol dependence, uncomplicated; F17.210 Nicotine dependence, cigarettes, uncomplicated; Z59.0 Homelessness; Z87.820 Personal history of traumatic brain injury
CPT/HCPCS: J1815; J3475; Q9967